=== PATIENT | female | born 1955 | race Caucasian/White ===

== ENCOUNTER → 2018-01-21 | Outpatient (CLI) | payer BC ==
[~2018-01-21] MED LIST: IOHEXOL 240 MG/ML 50ML VIAL. ONE; IOHEXOL 240 MG/ML 50ML VIAL. PO ONE; IOHEXOL 300 MG/ML 75 ML VIAL. IV ONE
--- NOTE | 2018-01-21 14:55 | RAD ---
PQRS Compliance Statement: One or more of the following individualized dose reduction techniques were utilized for this examination: 1. Automated exposure control 2. Adjustment of the mA and/or kV according to patient size 3. Use of iterative reconstruction technique CT ABD PELV W/ORAL IV CONTRAST Clinical Indication: pelvic pain for last week, has to hold compression to anterior pelvis when walking Comparison: None. Technique: Helical CT imaging of the abdomen and pelvis is performed after 74 cc of Omnipaque 300 IV contrast. Oral contrast also given. Findings: Lung bases are clear. There is severe mitral annular calcification. The cardiac size is normal. The liver, gallbladder, spleen, pancreas, adrenal glands, and abdominal aorta are normal. There is a 5.3 cm cyst in the upper pole of the right kidney. Small bilateral lower pole renal cysts. There is no hydronephrosis. Stomach is decompressed. There is no dilated small bowel. Scattered stool throughout the colon. No colon wall thickening is identified. The appendix is normal. Tiny fat-containing umbilical hernia. No abdominal adenopathy or free fluid. The urinary bladder is normal. Uterus surgically absent. There is no pelvic free fluid. Rectum mildly distended with stool. Question pelvic floor laxity. No acute bone abnormality. IMPRESSION: 1. No acute abdominal or pelvic abnormality. 2. Rectum mildly distended with stool. Question pelvic floor laxity. Electronically signed by: Shahram Oliver MD (01/21/2018 2:51 PM) [id number]
== END | disposition home or self-care (01) ==
LOC: CT 13:12
PROVIDERS: ATTEND Nurse Practitioner Family
DX: K42.9 Umbilical hernia without obstruction or gangrene (principal); N28.1 Cyst of kidney, acquired
CPT/HCPCS: 74177; Q9966; Q9967

== ENCOUNTER → 2019-05-17 | Outpatient (CLI) | payer BC ==
--- NOTE | 2019-05-17 14:49 | RAD ---
EXAM: Dual energy x-ray absorptiometry (DEXA). HISTORY: Postmenopausal female presents for osteoporosis screening. COMPARISON: None. TECHNIQUE: Dual energy x-ray absorptiometry of the lumbar spine and right hip was performed. Calculation of bone mineral density based on standard deviations above or below the expected young adult normal value (T-score) was completed. FINDINGS: The average bone mineral density in the 1st through 4th lumbar vertebrae is 1.349 g/cmxcm, corresponding with a T-score of 1.8. The average total bone mineral density in the right hip is 1.128 g/cmxcm, corresponding with a T-score of 1.4. IMPRESSION: Normal bone mineral density. Note: Definitions established by the World Health Organization: 1. Normal: T-score is -1.0 or above. 2. Osteopenia: T-score is between -1.0 and -2.5 . 3. Osteoporosis: T-score is -2.5 or below. Electronically signed by: Eloise Quiles MD (05/17/2019 2:46 PM) [place] [id number]
--- NOTE | 2019-06-08 12:05 | RAD ---
DATE: 05/17/2019 EXAM: MAMMO PATTI SCREENING BILATERAL HISTORY: Routine screening COMPARISON: None. Attempts to obtain outside exams for comparison were unsuccessful. This study was interpreted with the benefit of Computerized Aided Detection (CAD). Breast Density: HETERO The breast parenchyma is heterogenously dense, which could reduce sensitivity of mammography. Breast parenchyma level C. FINDINGS: Minimal benign calcification is present. No suspicious calcifications. Focal asymmetry involving left upper-outer breast 4 cm from the nipple is questioned measuring up to 0.8 cm diameter. No dominant mass or distortion. IMPRESSION: Focal asymmetry is questioned. Alternatively this may represent summation of normal breast parenchyma. BI-RADS CATEGORY: 0 INCOMPLETE: NEEDS ADDITIONAL IMAGING EVALUATION AND/OR PRIOR MAMMOGRAMS FOR COMPARISON. RECOMMENDED FOLLOW-UP: ADD ADDITIONAL IMAGING. Further evaluation with spot compression imaging of the left upper outer breast anteriorly is recommended. Ultrasound may be needed. PQRS compliance statement: Patient information was entered into a reminder system with a target due date for the next mammogram. Mammography is a sensitive method for finding small breast cancers, but it does not detect them all and is not a substitute for careful clinical examination. A negative mammogram does not negate a clinically suspicious finding and should not result in delay in biopsying a clinically suspicious abnormality. "Our facility is accredited by the [employer] Mammography Program."
== END | disposition home or self-care (01) ==
LOC: DXRAD 13:24
PROVIDERS: ATTEND Nurse Practitioner Family
DX: Z12.31 Encounter for screening mammogram for malignant neoplasm of breast (principal); Z13.820 Encounter for screening for osteoporosis; N64.89 Other specified disorders of breast; N95.9 Unspecified menopausal and perimenopausal disorder
CPT/HCPCS: 77063; 77067; 77080

== ENCOUNTER → 2019-06-22 | Outpatient (CLI) | payer BC ==
--- NOTE | 2019-06-22 14:28 | RAD ---
DATE: 06/22/2019. EXAM: DIGITAL DIAGNOSTIC LT, BREAST LEFT. HISTORY: Asymmetry on mammographic screening. Additional views are requested. COMPARISON: 05/17/2019. FINDINGS: Breast Density: HETERO The breast parenchyma is heterogenously dense, which could reduce sensitivity of mammography. Breast parenchyma level C.. The symmetry of concern resolves to a parenchymal density on spot compression. It has no clear correlate on the lateral projection. Scattered calcifications are benign. Sonography of the left lateral breast was performed. This reveals only normal parenchyma. There is no suspicious sonographic finding. BI-RADS CATEGORY: 2 BENIGN FINDING(S). RECOMMENDED FOLLOW-UP: 12M 12 MONTH FOLLOW-UP. PQRS compliance statement: Patient information was entered into a reminder system with a target due date 05/17/2020 for the next mammogram. Mammography is a sensitive method for finding small breast cancers, but it does not detect them all and is not a substitute for careful clinical examination. A negative mammogram does not negate a clinically suspicious finding and should not result in delay in biopsying a clinically suspicious abnormality. "Our facility is accredited by the [employer] Mammography [employer]."
== END | disposition home or self-care (01) ==
LOC: MAMMO 12:29
PROVIDERS: ATTEND Nurse Practitioner Family
DX: R92.1 Mammographic calcification found on diagnostic imaging of breast (principal)
CPT/HCPCS: 76641; 77065